=== PATIENT | female | born 1950 | race Caucasian/White ===

== ENCOUNTER 2021-07-30 10:50 | Day surgery (SDC) | payer MEDICARE ==
[~2021-07-30] VITALS: Ht 152.4 cm; Wt 90.6 kg
[~2021-07-30 10:50] MED LIST: LEVSOD25 PO; LISI20 PO; MULTIPLE VITAM1 EACH PO
--- NOTE | 2021-07-30 18:03 | NUR ---
ARRIVAL TO UNIT PT ARRIVED TO UNIT, UNABLE TO WIGGLE TOES AT THIS TIME AND HAS MINIMAL SENSATION IN LOWER EXTREMETIES R/T SPINAL. SHE DENIES PAIN OR NAUSEA AT THIS TIME. ON ROOM AIR AT THIS TIME. TOLERATING PO. POLAR ARAVIND IN PLACE. DRESSING CDI. CALL LIGHT IN REACH.
--- NOTE | 2021-07-30 22:04 | NUR ---
2100 PT. AMBULATED TO BATHROOM WITH WALKER ON SBA, VOIDED MODERATE AMOUNT.
--- NOTE | 2021-07-31 04:41 | NUR ---
SHIFT SUMMARY: PATIENT AOX4, POD1, LEFT KNEE DRESSING C/D/I WITH ACEWRAP ON. 2100 PT. AMBULATED TO BATHROOM WITH WALKER & GAITBELT WITHOUT PROBLEMS. DRINKING, EATING & VOIDING WELL. POLAR PAC TO LEFT KNEE. COMPLAINTS OF LEFT KNEE PAIN MEDICATED, SEE EMAR. NO NEW UNUSUALITIES NOTED.
[2021-07-31 05:35] LABS: BASOPHILS ABSOLUTE AUTO 0.02 K/mm3 (0.00-0.23); BASOPHILS PERCENT AUTO 0 % (0-2); EOSINOPHILS PERCENT AUTO 0 % (0-6); Hemoglobin 11.7 g/dL (11.5-16.0); IMMATURE GRAN ABSOLUTE AUTO 0.04 K/mm3 (0.00-0.10); IMMATURE GRAN PERCENT AUTO 0 % (0-1); LYMPHOCYTES ABSOLUTE AUTO 0.82 K/mm3 (0.84-5.20); LYMPHOCYTES PERCENT AUTO 6 % (21-46); MONOCYTES PERCENT AUTO 3 % (4-13); Mean Corpuscular HGB 28.3 pg (26.0-34.0); Mean Corpuscular HGB Conc 33.4 g/dL (31.5-36.5); Mean Corpuscular Volume 85 fL (80-100); Mean Platelet Volume 11.3 fL (9.1-12.4); NEUTROPHILS PERCENT AUTO 91 % (41-73); Platelet Count 229 K/mm3 (150-400); RDW Coefficient Variation 13.5 % (11.7-14.2); RDW Standard Deviation 41.9 fL (35.1-46.3); Red Blood Cell Count 4.13 M/mm3 (3.80-5.20); White Blood Cell Count 14.38 K/mm3 (4.00-11.30)
[2021-07-31 06:36] LABS: Anion Gap 7 mmol/L (6-16); Blood Urea Nitrogen 22 mg/dL (8-24); Bun/Creatinine Ratio 26.8 (12.0-20.0); CO2, Blood 24 mmol/L (21-32); Calcium, Blood 8.9 mg/dL (8.5-10.1); Chloride, Blood 107 mmol/L (98-108); Creatinine, Blood 0.82 mg/dL (0.40-1.00); Glomerular Filtration Rate >60 (60-); Glucose, Blood 140 mg/dL (70-99); Magnesium, Blood 1.9 mg/dL (1.6-2.4); Potassium, Blood 4.8 mmol/L (3.5-5.5); Sodium, Blood 138 mmol/L (136-145)
[2021-07-31] MEDS ORDERED: ASPI81CH PO (08:31)
[2021-07-31] MEDS ORDERED: ROXICODONE5 MG PO (08:33)
[2021-07-31] MEDS ORDERED: SULTRIDS PO (08:34)
[2021-07-31] MEDS ORDERED: PROMETHAZINE12.5 M1 PO (08:34)
--- NOTE | 2021-07-31 09:28 | NUR ---
07/31/21 0928 Sameera Alcantara VERIFICATIONS: EDIT CHART.
--- NOTE | 2021-07-31 10:36 | NUR ---
discharge pt left via wheelchair at 1000. all instructions gone over with patient, denied further questions. aquacels sent with patient, iv removed prior to discharge. prescriptions picked up before discharge per patient. pain well controlled per emar.
== END 2021-07-31 10:37 | disposition home or self-care (01) ==
LOC: ORSCMMR 10:50 → ORD 12:30 → SURS 18:01 → ORSCMMR 07-31 10:37
PROVIDERS: Orthopaedic Surgery
PROC: 0SRD0J9 Replacement of Left Knee Joint with Synthetic Substitute, Cemented, Open Approach (ICD-10-PCS; principal; 2021-07-30 12:30)
PROC: 8E0YXBZ Computer Assisted Procedure of Lower Extremity (ICD-10-PCS; principal; 2021-07-30 12:30)
DX: M17.12 Unilateral primary osteoarthritis, left knee (principal); I10 Essential (primary) hypertension; E03.9 Hypothyroidism, unspecified; Z87.891 Personal history of nicotine dependence; E66.01 Morbid (severe) obesity due to excess calories; Z68.39 Body mass index [BMI] 39.0-39.9, adult; Z79.899 Other long term (current) drug therapy
CPT/HCPCS: 36415; 73560-LT; 80048; 83735; 85025; 97110; 97116; 97161; A9270; C1713; C1776; J0171; J0690; J0735; J1100; J1885; J2250; J2370; J2704; J2795; J3010; J3370; J7050; J7120

== ENCOUNTER 2021-08-08 15:33 | Inpatient (IN) | payer MEDICARE ==
[~2021-08-08] VITALS: Ht 152.4 cm; Wt 96.5 kg
[~2021-08-08 15:33] MED LIST changes: +ASPI81CH PO; +PROMETHAZINE12.5 M1 PO; +ROXICODONE5 MG PO; +SULTRIDS PO
[2021-08-08 16:49] LABS: BASOPHILS ABSOLUTE AUTO 0.02 K/mm3 (0.00-0.23); BASOPHILS PERCENT AUTO 0 % (0-2); EOSINOPHILS ABSOLUTE AUTO 0.14 K/mm3 (0.00-0.68); EOSINOPHILS PERCENT AUTO 2 % (0-6); Hematocrit 34.8 % (33.0-51.0); Hemoglobin 12.3 g/dL (11.5-16.0); IMMATURE GRAN ABSOLUTE AUTO 0.04 K/mm3 (0.00-0.10); IMMATURE GRAN PERCENT AUTO 0 % (0-1); LYMPHOCYTES ABSOLUTE AUTO 0.89 K/mm3 (0.84-5.20); LYMPHOCYTES PERCENT AUTO 10 % (21-46); MONOCYTES ABSOLUTE AUTO 0.43 K/mm3 (0.16-1.47); MONOCYTES PERCENT AUTO 5 % (4-13); Mean Corpuscular HGB 27.8 pg (26.0-34.0); Mean Corpuscular HGB Conc 35.3 g/dL (31.5-36.5); Mean Corpuscular Volume 79 fL (80-100); Mean Platelet Volume 10.7 fL (9.1-12.4); NEUTROPHILS ABSOLUTE AUTO 7.69 K/mm3 (1.96-9.15); NEUTROPHILS PERCENT AUTO 84 % (41-73); Platelet Count 168 K/mm3 (150-400); RDW Coefficient Variation 13.7 % (11.7-14.2); RDW Standard Deviation 39.5 fL (35.1-46.3); Red Blood Cell Count 4.42 M/mm3 (3.80-5.20); White Blood Cell Count 9.21 K/mm3 (4.00-11.30)
[2021-08-08 17:08] LABS: Albumin, Blood 2.5 g/dL (3.4-5.0); Albumin/Globulin Ratio 0.8 (0.8-1.8); Bilirubin, Total 6.2 mg/dL (0.1-1.0); Bun/Creatinine Ratio 32.8 (12.0-20.0); Calcium, Blood 8.4 mg/dL (8.5-10.1); Creatinine, Blood 1.16 mg/dL (0.40-1.00); Globulin, Blood 3.3 g/dL (2.2-4.0); Potassium, Blood 3.9 mmol/L (3.5-5.5); Total Protein, Blood 5.8 g/dL (6.4-8.2)
[2021-08-08 17:19] LABS: Troponin I <0.015 ng/mL (0.000-0.040)
[2021-08-08 17:32] LABS: Influenza A, PCR NEGATIVE (NEGATIVE); Influenza B, PCR NEGATIVE (NEGATIVE); Resp Syncytial Virus, PCR NEGATIVE (NEGATIVE); SARS-Cov-2 (COVID-19) PCR, MMC NEGATIVE (NEGATIVE)
[2021-08-08 19:54] LABS: Source, Urine Clean Catch
[2021-08-08 20:03] LABS: Appearance, Urine Clear (Clear); Bilirubin, Urine 1+ (Neg); Blood, Urine Neg (Neg); Color, Urine Pale Yellow (P-Yellow); Glucose Qualitative, Urine Neg (Neg); Ketones, Urine Neg (Neg); Leukocyte Esterase, Urine Neg (Neg); Nitrite, Urine Neg (Neg); Protein, Urine 1+ (Neg); Urobilinogen, Urine 2+ (Normal)
[2021-08-08] MEDS ORDERED: OXYB5 PO (21:05)
[2021-08-09 04:07] LABS: BASOPHILS ABSOLUTE AUTO 0.02 K/mm3 (0.00-0.23); BASOPHILS PERCENT AUTO 0 % (0-2); EOSINOPHILS ABSOLUTE AUTO 0.15 K/mm3 (0.00-0.68); EOSINOPHILS PERCENT AUTO 2 % (0-6); Hematocrit 27.5 % (33.0-51.0); Hemoglobin 9.5 g/dL (11.5-16.0); IMMATURE GRAN ABSOLUTE AUTO 0.14 K/mm3 (0.00-0.10); IMMATURE GRAN PERCENT AUTO 1 % (0-1); LYMPHOCYTES ABSOLUTE AUTO 0.86 K/mm3 (0.84-5.20); LYMPHOCYTES PERCENT AUTO 9 % (21-46); MONOCYTES PERCENT AUTO 4 % (4-13); Mean Corpuscular HGB 27.5 pg (26.0-34.0); Mean Corpuscular HGB Conc 34.5 g/dL (31.5-36.5); Mean Corpuscular Volume 80 fL (80-100); Mean Platelet Volume 10.8 fL (9.1-12.4); NEUTROPHILS ABSOLUTE AUTO 8.29 K/mm3 (1.96-9.15); NEUTROPHILS PERCENT AUTO 84 % (41-73); Platelet Count 155 K/mm3 (150-400); RDW Coefficient Variation 14.1 % (11.7-14.2); RDW Standard Deviation 40.9 fL (35.1-46.3); Red Blood Cell Count 3.45 M/mm3 (3.80-5.20); White Blood Cell Count 9.86 K/mm3 (4.00-11.30)
[2021-08-09 04:30] LABS: Albumin, Blood 1.9 g/dL (3.4-5.0); Albumin/Globulin Ratio 0.7 (0.8-1.8); Bilirubin, Total 5.5 mg/dL (0.1-1.0); Bun/Creatinine Ratio 28.7 (12.0-20.0); Calcium, Blood 7.2 mg/dL (8.5-10.1); Creatinine, Blood 1.01 mg/dL (0.40-1.00); Globulin, Blood 2.6 g/dL (2.2-4.0); Potassium, Blood 3.9 mmol/L (3.5-5.5); Total Protein, Blood 4.5 g/dL (6.4-8.2)
--- NOTE | 2021-08-09 05:29 | NUR ---
SHIFT SUMMARY PATIENT ARRIVED TO FLOOR AT APPROX 2100. PATIENT A&OX4 THROUGHOUT SHIFT AND VERY DROWSY. GEN WEAKNESS NOTED. EXTRA FATIGUED FROM LACK OF SLEEP AND NOT EATING PLUS N/V X4 DAYS.ON RA. HR IN THE ONE TEENS ON ARRIVAL AND MD OK WITH THIS FOR TIME BEING SHE HAD ROUNDED TO BEDSIDE. BP IS VERY SOFT SO HELD CARIDZEM PUSH AFTER CONFIRMING WITH MD. 3RD AND 4TH LITER BOLUS GIVEN ON FLOOR TO HELP WITH SOFT BP'S. THIS WAS HELPING AND MAP >60 FOR A FEW HOURS AND HR IN LOW 100'S. AROUND 0145 PATIENT HR STARTED SUSTAINING IN 150'S. MD CALLED AND ORDERED 5MG LOPRESSOR IV PUSH. BP WAS STABLE BEFORE THIS BUT DROPPED SIGNIFICANTLY AFTER IV PUSH. HAD GIVEN PHENERGAN FOR NAUSEA 30 MIN PRIOR WHICH MAY HAVE CONTRIBUTED.500ML BOLUS ORDERED AND GIVEN WITH NO CHANGE TO BP AND MAPS IN THE 50'S. MD MADE AWARE AND DECIDED TO TRANSFER TO ICU FOR LEVO DRIP. PATIENT ASYMPTOMATIC RESTING IN BED THROUHGOUT. LEFT KNEE INCISION REDRESSED. SLIGHTLY RED BUT NO SWELLING OR PAIN TO SITE. UP WITH ONE ASSIST IN ROOM AND TO BSC. VOIDING WITHOUT ISSUE. REPORT GIVEN TO KESHA PONCE AND PATIENT TRANSFERRED TO ROOM ICU 10 WITHOUT ISSUE.
--- NOTE | 2021-08-09 06:33 | NUR ---
Assumed care/shift summary. Pt transferred from PCU at 0435, on room air, alert and oriented. PG in CAN, pt started on levophed 4 mcg/min, titrated up to 6 mcg/min to maintain BP. LR running at 75 ml/hr. Low sodium and calcium reported to Dr. Acosta this am, NS DC'd and LR started per his orders. VS stable, pt sleeping at this time. See shift assessment for further details, will continue to monitor and report off to dayshift RN.
--- NOTE | 2021-08-09 10:35 | NUR ---
CARE OF PT ASSUMED AT 0700. PT AWAKE IN ROOM W C/O PAIN TO ESOPHEGEAL AREA, WORSE W SWALLOWING. BURNING PAIN 12/19. PT C/O MILD NAUSEA. DR DANIEL CALLED TWICE REGARDING PAIN, PEPCID, ZOFRAN, AND MAALOX ORDERED AND GIVEN. LEVOPHED AT 6MCG TO KEEP MAP >65. LEVOPHED TITRATED DOWN TO 3MCG OVER 2 HRS. BP REMAINS STABLE W MAPS >65. ECHO COMPLETE. DR DANIEL AT BEDSIDE THIS AM, FULL UPDATE GIVEN. PT'S SISTER UPDATED W PT'S PERMISSION.
--- NOTE | 2021-08-09 15:37 | NUR ---
PT HAS BEEN SLEEPING MAJORITY OF SHIFT. LEVOPHED REMAINS OFF, BP ON THE LOWER SIDE BUT MAPS REMAIN >65. PT C/O THROAT PAIN 10/10. BACK OF THROAT MILDLY RED. DR Pond CALLED, TYLENOL PO ORDERED X ONE. CEPACOL LOZENGE GIVEN.
--- NOTE | 2021-08-10 00:47 | NUR ---
ASSUMED CARE AT 1900 PATIENT ALERT AND ORIENTED X4. 02 SATS >95% ON RA. LUNGS CLEAR TO DIMINISHED. HR A.FIB 80s-110. BP STABLE. PATIENT COMPLAINS OF THROAT PAIN BUT STATES ICE WATER HELPS AND SHE IS ABLE TO SLEEP. DENIES NAUSEA AND VOMITING. ABD DISTENDED, DENIES TENDERNESS. REPOSITIONS SELF IN BED. BED WHITMAN FOR VOIDING. PATIENT SLEEPING MOST THE NIGHT. CALL LIGHT IN REACH.
[2021-08-10 04:17] LABS: Hematocrit 26.4 % (33.0-51.0); Hemoglobin 8.8 g/dL (11.5-16.0); Mean Corpuscular HGB 27.3 pg (26.0-34.0); Mean Corpuscular HGB Conc 33.3 g/dL (31.5-36.5); Mean Corpuscular Volume 82 fL (80-100); Mean Platelet Volume 10.9 fL (9.1-12.4); Platelet Count 151 K/mm3 (150-400); RDW Coefficient Variation 14.6 % (11.7-14.2); RDW Standard Deviation 43.7 fL (35.1-46.3); Red Blood Cell Count 3.22 M/mm3 (3.80-5.20); White Blood Cell Count 7.37 K/mm3 (4.00-11.30)
[2021-08-10 04:55] LABS: Alanine Aminotransfer (ALT/SGP 154 U/L (12-78); Albumin, Blood 1.8 g/dL (3.4-5.0); Albumin/Globulin Ratio 0.7 (0.8-1.8); Alk Phos 349 U/L (50-136); Anion Gap 8 mmol/L (6-16); Aspartate Aminotrans (AST/SGOT 110 U/L (12-37); Bilirubin, Total 5.8 mg/dL (0.1-1.0); Blood Urea Nitrogen 22 mg/dL (8-24); Bun/Creatinine Ratio 24.2 (12.0-20.0); CO2, Blood 20 mmol/L (21-32); Calcium, Blood 7.5 mg/dL (8.5-10.1); Chloride, Blood 103 mmol/L (98-108); Creatinine, Blood 0.91 mg/dL (0.40-1.00); Globulin, Blood 2.6 g/dL (2.2-4.0); Glomerular Filtration Rate >60 (60-); Glucose, Blood 96 mg/dL (70-99); Potassium, Blood 4.1 mmol/L (3.5-5.5); Sodium, Blood 131 mmol/L (136-145); Total Protein, Blood 4.4 g/dL (6.4-8.2)
[2021-08-10 05:31] LABS: BAND PERCENT MAN 1 % (0-8); BASOPHILS ABSOLUTE MAN 0.07 K/mm3 (0.00-0.23); BASOPHILS PERCENT MAN 1 % (0-2); EOSINOPHILS ABSOLUTE MAN 0.14 K/mm3 (0.00-0.68); EOSINOPHILS PERCENT MAN 2 % (0-6); LYMPHOCYTES ABSOLUTE MAN 1.17 K/mm3 (0.84-5.20); LYMPHOCYTES PERCENT MAN 16 % (21-46); MONOCYTES ABSOLUTE MAN 0.44 K/mm3 (0.16-1.47); MONOCYTES PERCENT MAN 6 % (4-13); NEUTROPHILS ABSOLUTE MAN 5.52 K/mm3 (1.96-9.15); SEG NEUTROPHILS PERCENT MAN 74 % (41-73); TOTAL CELLS COUNTED 100
--- NOTE | 2021-08-10 07:18 | NUR ---
SHIFT SUMMARY PATIENT ALERT AND ORIENTED X4. SLEPT MOST THE NIGHT. HAD ONE EPISODE OF NAUSEA AND EMESIS. MEDICATED PER EMAR. TOWARDS END OF SHIFT PATIENT REQUESTED SOMETHING FOR HER THROAT PAIN, MEDICATED PER EMAR. 02 SATS >95% ON RA. BP STABLE. HR A.FIB 80s-110, WITH ACTIVITY HEART RATE UP TO 140s. BANDAGE CHANGED ON LEFT KNEE. PATIENT UP TO SIDE UP BED TO DO SOME LEG EXERCISES. BED WHITMAN FOR VOIDING. REPORTED TO DAYSHIFT RN.
[2021-08-10 08:39] LABS: Vancomycin, Trough 14.1 ug/mL (5.0-10.0)
[2021-08-10 09:10] LABS: HBSAG SCREEN Negative (Negative); HEP A AB, IGM Negative (Negative); HEP B CORE AB, IGM Negative (Negative); HEP C VIRUS AB <0.1 (0.0-0.9)
--- NOTE | 2021-08-10 09:57 | NUR ---
CARE OF PT ASSUMED AT 0700 THIS AM. PT AWAKENS TO VOICE. NAUSEA RESOLVED FROM YESTERDAY BUT PT CONTINUES TO C/O SEVERE BURNING OF THROAT/ESOPHAGEAL/EPIGASTIC PAIN WITH EACH SWALLOW 02/18. BP LOW BUT MAPS >65. LOPRESSOR HELD FOR SBP <100. ONE TIME ORDER OF FENTANYL 25MCG GIVEN AFTER PT ATTEMPTED TO EAT BREAKFAST. DR BENNETT AND DR Beltran GIVEN FULL UPDATE. MAGIC MOUTHWASH SWISH AND SWALLOW ORDERED FOR PAIN. PT NOW MED FLOOR STATUS W TELE. WILL GET PT OOB TO CHAIR TOLERATED. P.T. TO BE ORDERED
--- NOTE | 2021-08-10 14:37 | NUR ---
PT DIDNT FEEL THAT THE MAGIC MOUTHWASH HELPED HER ESOPHEGEAL/EPIGASTRIC PAIN, BUT STATES ITS BETTER TODAY THAN YESTERDAY. PT OOB TO CHAIR W VISHNU AND WALKER; ILDA WELL.
--- NOTE | 2021-08-10 18:28 | NUR ---
PT STAYED UP IN CHAIR UNTIL AFTER DINNER. BP ON LOWER SIDE BUT MAP REMAINS >65. OTHERWISE VSS.
--- NOTE | 2021-08-10 20:00 | NUR ---
ASSUMED CARE OF PT, REPORT RECEIVED. PT IS RESTING QUIETLY, RECLINING IN BED. SHE IS SPEAKING IN FULL SENTENCES WITHOUT VISIBLE INCREASED WORK OF BREATHING, OCCASIONAL DRY COUGH IS NOTED AND PT DENIES SPUTUM PRODUCTION. SHE DENIES SOB/DYSPNEA, DENIES CP/PRESSURE, DENIES N/V, DENIES DIZZINESS/VERTIGO, DENIES NUMBNESS/TINGLING. SHE DOES ADMIT TO 12/19 BURINING PAIN TO HER THROAT THAT IS EXACERBATED WITH SWALLOWING, OF THIS TIME, COLD PO INTAKE HAS BEEN BEST FOR PAIN CONTROL, SHE REQUESTS ICE CREAM AT THIS TIME. AFIB CONTINUES ON MONITOR, RATE IS HIGH 80S TO MID 110S, PRESSURE IS IMPROVED FROM 1700 VITAL SIGN ASSESSMENT, PULSES ARE FULL, SKIN IS PALE, WARM AND DRY, BRISK CAP REFILL, STRONG PULSES, NO EDEMA NOTED. NORMOACTIVE BOWEL TONES ARE NOTED, ABD MODERATELY DISTENDED, SOFT, PT REPORTS NO BM SINCE ADMIT BUT IS PASSING FLATUS WELL. HAS BEEN UP TO [facility] [place] WITH FWW AND SBA FOR VOIDS AND REPORTS THAT SHE IS TOLERATING WELL. DRESSING TO LEFT KNEE IS CDI, PT REPORTS THAT SHE HAS NO PAIN TO KNEE, "IT'S JUST A LITTLE SORE" NO REDNESS OR SWELLING IS NOTED AND PT REPORTS THAT KNEE FEELS ACTUALLY MUCH BETTER THAN HER RIGHT TOTAL KNEE REPLACEMENT DID. WILL CONT TO MONITOR.
[2021-08-11 04:35] LABS: Hematocrit 26.3 % (33.0-51.0); Mean Corpuscular HGB 27.4 pg (26.0-34.0); Mean Corpuscular HGB Conc 34.2 g/dL (31.5-36.5); Mean Corpuscular Volume 80 fL (80-100); Mean Platelet Volume 10.5 fL (9.1-12.4); Platelet Count 199 K/mm3 (150-400); RDW Coefficient Variation 14.7 % (11.7-14.2); RDW Standard Deviation 43.8 fL (35.1-46.3); Red Blood Cell Count 3.28 M/mm3 (3.80-5.20); White Blood Cell Count 5.72 K/mm3 (4.00-11.30)
[2021-08-11 05:00] LABS: Alanine Aminotransfer (ALT/SGP 160 U/L (12-78); Albumin/Globulin Ratio 0.7 (0.8-1.8); Alk Phos 382 U/L (50-136); Anion Gap 5 mmol/L (6-16); Aspartate Aminotrans (AST/SGOT 104 U/L (12-37); Bilirubin, Total 5.8 mg/dL (0.1-1.0); Blood Urea Nitrogen 18 mg/dL (8-24); Bun/Creatinine Ratio 23.1 (12.0-20.0); CO2, Blood 23 mmol/L (21-32); Calcium, Blood 8.1 mg/dL (8.5-10.1); Chloride, Blood 106 mmol/L (98-108); Creatinine, Blood 0.78 mg/dL (0.40-1.00); Globulin, Blood 2.8 g/dL (2.2-4.0); Glomerular Filtration Rate >60 (60-); Glucose, Blood 109 mg/dL (70-99); Potassium, Blood 4.3 mmol/L (3.5-5.5); Sodium, Blood 134 mmol/L (136-145); Total Protein, Blood 4.8 g/dL (6.4-8.2)
[2021-08-11 05:45] LABS: BASOPHILS PERCENT MAN 0 % (0-2); EOSINOPHILS ABSOLUTE MAN 0.11 K/mm3 (0.00-0.68); EOSINOPHILS PERCENT MAN 2 % (0-6); LYMPHOCYTES ABSOLUTE MAN 1.54 K/mm3 (0.84-5.20); LYMPHOCYTES PERCENT MAN 27 % (21-46); MONOCYTES ABSOLUTE MAN 0.22 K/mm3 (0.16-1.47); MONOCYTES PERCENT MAN 4 % (4-13); NEUTROPHILS ABSOLUTE MAN 3.77 K/mm3 (1.96-9.15); PLASMA CELL ABSOLUTE MAN 0.05 K/mm3 (0.00-0.00); PLASMA CELLS PERCENT MAN 1 % (0-0); SEG NEUTROPHILS PERCENT MAN 66 % (41-73); TOTAL CELLS COUNTED 100
--- NOTE | 2021-08-11 06:36 | NUR ---
PT RESTS QUIETLY THROUGHOUT SHIFT, REPORTS THAT SHE WAS ABLE TO SLEEP WELL AT 0400 VITAL SIGN ASSESSMENT AND AM LABS. SHE CONTINUES TO DENY PAIN OTHER THAN "SORE" TO LEFT KNEE. PAIN TO THROAT IS REPORTED TO CONTINUE IMPROVING SLOWLY. COLD PO HAS BEEN MOST HELPFUL WITH PAIN CONTROL. SHE CONTINUES TO DENY SOB/DYSPNEA, DENIES CP/PRESSURE, DENIES NUMBNESS/TINGLING, DENIES DIZZINESS/VERTIGO. LEFT KNEE CONTINUES WITHOUT CHANGES THIS AM. SHE TOLERATES UP TO BSC WITH 1 PERSON SBA AND FWW WELL THROUGHOUT NOC. SHE CONTINUES ABLE TO BOOST AND TURN SELF WELL AND FREQUENTLY.
--- NOTE | 2021-08-11 09:30 | NUR ---
UPDATE: DR ZULMA HIGGINBOTHAM. DR MAYA @ BEDSIDE FOR EVAL OF POST OP L KNEE. DRESSING CHANGED TO ABD PAD & RAGHAVENDRA WRAP. PER ZULMA DRESSING CHANGES SHOULD BE CHANGED 1xDAY USING H2O2, PATTING DRY, PLACING ABD & RAGHAVENDRA WRAP. THIS ONLY NEEDS TO BE DONE UNTIL THE ZEB ARE REMOVED IN A FEW DAYS. ORDERS PLACED FOR PT. DISCUSSING PT CASE W/ DR Pond, SHE BELIEVES THE PT WILL ABLE TO BE DC'd HOME TOMORROW.
--- NOTE | 2021-08-11 17:59 | NUR ---
PATIENT ARRIVED TO THE FLOOR TODAY AT AROUND 1300 FROM ICU. PATIENT ARRIVED VIA WC AND TRANSFERED SELF TO BED. STOOD WITH SBA, TOLERATED WELL. LUNG SOUNDS CLEAR BUT DIMINISHED. ROOM AIR. AAOX4. ABLE TO MAKE NEEDS AND WANTS KNOWN. UP TO THE BATHROOM WITH SBA TODAY, VOIDING WELL WITH NO COMPLAINTS. WORKED WITH THERAPY TODAY AND DID WELL. DRESSING TO LEFT KNEE WAS CHANGED BY MD BEFORE COMING TO FLOOR. WILL MONITOR.
[2021-08-12 05:48] LABS: Hematocrit 28.3 % (33.0-51.0); Hemoglobin 9.4 g/dL (11.5-16.0); Mean Corpuscular HGB 27.1 pg (26.0-34.0); Mean Corpuscular HGB Conc 33.2 g/dL (31.5-36.5); Mean Corpuscular Volume 82 fL (80-100); Mean Platelet Volume 10.7 fL (9.1-12.4); Platelet Count 299 K/mm3 (150-400); RDW Coefficient Variation 15.2 % (11.7-14.2); RDW Standard Deviation 44.8 fL (35.1-46.3); Red Blood Cell Count 3.47 M/mm3 (3.80-5.20); White Blood Cell Count 7.28 K/mm3 (4.00-11.30)
[2021-08-12 06:26] LABS: BAND PERCENT MAN 1 % (0-8); BASOPHILS PERCENT MAN 0 % (0-2); EOSINOPHILS ABSOLUTE MAN 0.07 K/mm3 (0.00-0.68); EOSINOPHILS PERCENT MAN 1 % (0-6); LYMPHOCYTES ABSOLUTE MAN 2.03 K/mm3 (0.84-5.20); LYMPHOCYTES PERCENT MAN 28 % (21-46); MONOCYTES ABSOLUTE MAN 0.43 K/mm3 (0.16-1.47); MONOCYTES PERCENT MAN 6 % (4-13); NEUTROPHILS ABSOLUTE MAN 4.65 K/mm3 (1.96-9.15); PLASMA CELL ABSOLUTE MAN 0.07 K/mm3 (0.00-0.00); PLASMA CELLS PERCENT MAN 1 % (0-0); SEG NEUTROPHILS PERCENT MAN 63 % (41-73); TOTAL CELLS COUNTED 100
[2021-08-12 06:28] LABS: Alanine Aminotransfer (ALT/SGP 161 U/L (12-78); Albumin, Blood 2.2 g/dL (3.4-5.0); Albumin/Globulin Ratio 0.8 (0.8-1.8); Alk Phos 416 U/L (50-136); Anion Gap 6 mmol/L (6-16); Aspartate Aminotrans (AST/SGOT 90 U/L (12-37); Blood Urea Nitrogen 16 mg/dL (8-24); Bun/Creatinine Ratio 22.1 (12.0-20.0); CO2, Blood 23 mmol/L (21-32); Calcium, Blood 8.2 mg/dL (8.5-10.1); Chloride, Blood 104 mmol/L (98-108); Creatinine, Blood 0.73 mg/dL (0.40-1.00); Globulin, Blood 2.9 g/dL (2.2-4.0); Glomerular Filtration Rate >60 (60-); Glucose, Blood 115 mg/dL (70-99); Potassium, Blood 4.3 mmol/L (3.5-5.5); Sodium, Blood 133 mmol/L (136-145); Total Protein, Blood 5.1 g/dL (6.4-8.2)
--- NOTE | 2021-08-12 06:38 | NUR ---
PT VSS T/O NIGHT, SATS >90% ON RA, PT DENIED SOB. DRESSING TO LEFT KNEE CDI. PT DENIED PAIN. CAP REFILL WNL. PT UP OOB W/FWW+1 ASSIST, ILDA WELL, DENIED DIZZINESS WHEN UP. PT VOIDING URINE W/O DIFFICULTY.
--- NOTE | 2021-08-12 11:23 | NUR ---
PT IS ANXIOUS TO GO HOME, DR. Pond NOTIFIED, DC ORDERS PENDING, PT NOTIFIED.
[2021-08-12] MEDS ORDERED: ELIQUIS5 M2 PO (11:56)
[2021-08-12] MEDS ORDERED: BENMENLOZ PO (12:15)
[2021-08-12] MEDS ORDERED: Lopressor 25 mg25 MG PO (12:16)
[2021-08-12] MEDS ORDERED: PANT40 PO (12:17)
--- NOTE | 2021-08-12 15:38 | NUR ---
PT DC'D AT 1400, DC'D HOME, DC INSTRUCTIONS GIVEN, VERBALIZED UNDERSTANDING, POWERGLIDE DC'D BY ROSARIO LANDRY.
== END 2021-08-12 13:30 | disposition home or self-care (01) | DRG 871 ==
LOC: ER 15:33 → PCU 20:22 → ICUW 20:22 → SURS 08-11 12:02
PROVIDERS: Pharmacist; Physician Assistant; Student in an Organized Health Care Education/Training Program; ADMIT Internal Medicine
PROC: 3E033XZ Introduction of Vasopressor into Peripheral Vein, Percutaneous Approach (ICD-10-PCS; principal; 2021-08-09)
DX: A41.9 Sepsis, unspecified organism (principal); R65.21 Severe sepsis with septic shock; J18.9 Pneumonia, unspecified organism; R57.1 Hypovolemic shock; E87.1 Hypo-osmolality and hyponatremia; N17.9 Acute kidney failure, unspecified; Z20.822 Contact with and (suspected) exposure to COVID-19; R91.1 Solitary pulmonary nodule; I48.91 Unspecified atrial fibrillation; K20.90 Esophagitis, unspecified without bleeding; R79.89 Other specified abnormal findings of blood chemistry; M17.12 Unilateral primary osteoarthritis, left knee; Z28.21 Immunization not carried out because of patient refusal; I10 Essential (primary) hypertension; Z79.82 Long term (current) use of aspirin; Z96.652 Presence of left artificial knee joint; Z90.710 Acquired absence of both cervix and uterus; Z96.641 Presence of right artificial hip joint; Z98.890 Other specified postprocedural states; Z87.891 Personal history of nicotine dependence; Z79.899 Other long term (current) drug therapy; Z90.49 Acquired absence of other specified parts of digestive tract; Y95 Nosocomial condition
CPT/HCPCS: 0241U; 36415; 51701; 71045; 74177; 76705; 80053; 80074; 80202; 82977; 83605; 83690; 83880; 84145; 84443; 84484; 85025; 85651; 86140; 87040; 93005; 93010; 93306; 96374; 96375; 96376; 97110; 97116; 97162; 99285-25; A9270; C1751; G0480; J0696; J1644; J2270; J2405; J2543; J2550; J3010; J3370; J7030; J7050; J7060; J7120; Q9967

== ENCOUNTER → 2023-03-05 | Outpatient (CLI) | payer MEDICARE ==
[~2023-03-05] MED LIST changes: +BENMENLOZ PO; +ELIQUIS5 M2 PO; +Lopressor 25 mg25 MG PO; +OXYB5 PO; +PANT40 PO
== END ==
LOC: LAB SHORT 19:00 → LAB 19:00
DX: R31.9 Hematuria, unspecified (principal)
CPT/HCPCS: 87077; 87086; 87147; 87186

== ENCOUNTER → 2023-06-08 | Outpatient (CLI) | payer MEDICARE | LOC: LAB 15:45 → LAB SHORT 15:45 | DX: R31.9 Hematuria, unspecified (principal) | CPT/HCPCS: 87077; 87086; 87186 ==

== ENCOUNTER → 2023-06-08 | Outpatient (CLI) | payer MEDICARE | END | disposition home or self-care (01) | LOC: LAB SHORT 16:15 → LAB 16:15 | DX: Z51.81 Encounter for therapeutic drug level monitoring (principal); Z79.899 Other long term (current) drug therapy | CPT/HCPCS: 83735 ==

== ENCOUNTER 2023-11-17 10:28 | Day surgery (SDC) | payer MEDICARE | END 2023-11-17 22:56 | disposition home or self-care (01) | LOC: WOUND 10:28 | DX: S89.91XD Unspecified injury of right lower leg, subsequent encounter (principal); S80.12XD Contusion of left lower leg, subsequent encounter; I48.20 Chronic atrial fibrillation, unspecified; I10 Essential (primary) hypertension; E03.9 Hypothyroidism, unspecified; X58.XXXA Exposure to other specified factors, initial encounter; Z87.891 Personal history of nicotine dependence | CPT/HCPCS: A6213; G0463 ==

== ENCOUNTER 2023-11-22 04:27 | Day surgery (SDC) | payer MEDICARE | END 2023-11-22 22:44 | disposition home or self-care (01) | LOC: WOUND 04:27 | DX: S81.801D Unspecified open wound, right lower leg, subsequent encounter (principal); W22.09XD Striking against other stationary object, subsequent encounter ==

== ENCOUNTER 2024-01-03 04:18 | Day surgery (SDC) | payer MEDICARE | END 2024-01-03 22:56 | disposition home or self-care (01) | LOC: WOUND 04:18 | DX: S81.801A Unspecified open wound, right lower leg, initial encounter (principal); S80.11XD Contusion of right lower leg, subsequent encounter; I48.91 Unspecified atrial fibrillation; Z79.01 Long term (current) use of anticoagulants; X58.XXXA Exposure to other specified factors, initial encounter | CPT/HCPCS: A6213 ==

== ENCOUNTER → 2024-01-05 | Outpatient (CLI) | payer MEDICARE | END | disposition home or self-care (01) | LOC: LAB SHORT 17:04 → LAB 17:04 | DX: N39.0 Urinary tract infection, site not specified (principal) | CPT/HCPCS: 87086 ==

== ENCOUNTER 2024-01-10 02:40 | Day surgery (SDC) | payer MEDICARE | END 2024-01-10 23:14 | disposition home or self-care (01) | LOC: WOUND 02:40 | DX: S81.801A Unspecified open wound, right lower leg, initial encounter (principal); W22.03XA Walked into furniture, initial encounter | CPT/HCPCS: A6213; G0463 ==

== ENCOUNTER 2024-01-17 02:07 | Day surgery (SDC) | payer MEDICARE | END 2024-01-17 04:20 | disposition home or self-care (01) | LOC: WOUND 02:07 | DX: S81.801A Unspecified open wound, right lower leg, initial encounter (principal); I48.91 Unspecified atrial fibrillation; Z79.01 Long term (current) use of anticoagulants; W22.8XXA Striking against or struck by other objects, initial encounter | CPT/HCPCS: A6213 ==

== ENCOUNTER 2024-01-24 03:28 | Day surgery (SDC) | payer MEDICARE ==
[2024-01-24] MEDS ORDERED: Lidocaine HCl 4% Cream 5 GM ONE (13:11)
== END 2024-01-24 23:10 | disposition home or self-care (01) ==
LOC: WOUND 03:28
DX: S81.801A Unspecified open wound, right lower leg, initial encounter (principal); I48.91 Unspecified atrial fibrillation; I87.2 Venous insufficiency (chronic) (peripheral); Z79.01 Long term (current) use of anticoagulants; X58.XXXA Exposure to other specified factors, initial encounter
CPT/HCPCS: A6213; A9270

== ENCOUNTER 2024-02-07 07:03 | Day surgery (SDC) | payer MEDICARE ==
[2024-02-07] MEDS ORDERED: Lidocaine HCl 4% Cream 5 GM ONE (13:10)
== END 2024-02-07 23:55 | disposition home or self-care (01) ==
LOC: WOUND 07:03
DX: L97.812 Non-pressure chronic ulcer of other part of right lower leg with fat layer exposed (principal); I87.2 Venous insufficiency (chronic) (peripheral); I73.9 Peripheral vascular disease, unspecified
CPT/HCPCS: A6213; A9270

== ENCOUNTER 2024-02-15 01:34 | Day surgery (SDC) | payer MEDICARE, OTHER ==
[2024-02-15] MEDS ORDERED: Lidocaine HCl 4% Cream 5 GM ONE (10:57)
== END 2024-02-15 22:45 | disposition home or self-care (01) ==
LOC: WOUND 01:34
DX: I87.311 Chronic venous hypertension (idiopathic) with ulcer of right lower extremity (principal); L97.912 Non-pressure chronic ulcer of unspecified part of right lower leg with fat layer exposed; I48.91 Unspecified atrial fibrillation; S80.11XD Contusion of right lower leg, subsequent encounter; I73.9 Peripheral vascular disease, unspecified; I87.2 Venous insufficiency (chronic) (peripheral); Z79.01 Long term (current) use of anticoagulants
CPT/HCPCS: A9270

== ENCOUNTER 2024-02-17 03:18 | Day surgery (SDC) | payer MEDICARE, OTHER | END 2024-02-17 22:47 | disposition home or self-care (01) | LOC: WOUND 03:18 | DX: I87.311 Chronic venous hypertension (idiopathic) with ulcer of right lower extremity (principal); L97.912 Non-pressure chronic ulcer of unspecified part of right lower leg with fat layer exposed; S80.11XD Contusion of right lower leg, subsequent encounter; I73.9 Peripheral vascular disease, unspecified; I87.2 Venous insufficiency (chronic) (peripheral) ==

== ENCOUNTER 2024-03-15 04:11 | Day surgery (SDC) | payer MEDICARE | END 2024-03-15 22:40 | disposition home or self-care (01) | LOC: WOUND 04:11 | DX: I87.311 Chronic venous hypertension (idiopathic) with ulcer of right lower extremity (principal); I87.2 Venous insufficiency (chronic) (peripheral); L97.812 Non-pressure chronic ulcer of other part of right lower leg with fat layer exposed; I73.9 Peripheral vascular disease, unspecified; I48.91 Unspecified atrial fibrillation; Z79.01 Long term (current) use of anticoagulants | CPT/HCPCS: G0463 ==

== ENCOUNTER → 2024-06-23 | Outpatient (CLI) | payer MEDICARE ==
[2024-06-23 20:00] LABS: Alanine Aminotransfer (ALT/SGP 24 U/L (12-78); Albumin, Blood 3.5 g/dL (3.4-5.0); Albumin/Globulin Ratio 0.9 (0.8-1.8); Alk Phos 72 U/L (50-136); Anion Gap 11 mmol/L (3-11); Aspartate Aminotrans (AST/SGOT 21 U/L (12-37); Bilirubin, Direct <0.1 mg/dL (0.0-0.3); Bilirubin, Indirect Unable to Calculate mg/dL (0.1-0.7); Bilirubin, Total 0.4 mg/dL (0.1-1.0); Blood Urea Nitrogen 17 mg/dL (8-24); Bun/Creatinine Ratio 19.7 (12.0-20.0); CHOL/HDL RATIO 3.7; CO2, Blood 26 mmol/L (21-32); Calcium, Blood 9.3 mg/dL (8.5-10.1); Chloride, Blood 101 mmol/L (98-108); Cholesterol 187 mg/dL (50-200); Creatinine, Blood 0.86 mg/dL (0.40-1.00); Free Thyroxine 1.15 ng/dL (0.70-1.60); Glomerular Filtration Rate 70 (60-); Glucose, Blood 115 mg/dL (70-99); HDL Cholesterol 51 mg/dL (>39); LDL/HDL RATIO 2.2; Low Density Lipoprotein Chol 110 mg/dL (0-110); Potassium, Blood 3.7 mmol/L (3.5-5.5); Sodium, Blood 134 mmol/L (136-145); Total Protein, Blood 7.5 g/dL (6.4-8.2); Triglycerides 128 mg/dL (30-160); Very Low Density Lipoprot Chol 25 mg/dL (6-32)
== END ==
LOC: LAB SHORT 18:48 → LAB 18:48
PROVIDERS: Family Medicine
DX: I10 Essential (primary) hypertension (principal); E78.49 Other hyperlipidemia; R73.9 Hyperglycemia, unspecified; R53.82 Chronic fatigue, unspecified
CPT/HCPCS: 80053; 80061; 82248; 83036; 83735; 84439; 84443